=== PATIENT | female | born 1945 | race Caucasian/White ===

== ENCOUNTER 2019-09-26 08:03 | Emergency (ER) | payer BC, SELFPAY | END 2019-09-26 08:15 | disposition left against medical advice (07) | DX: Z53.21 Procedure and treatment not carried out due to patient leaving prior to being seen by health care provider (principal) | CPT/HCPCS: 99199 ==

== ENCOUNTER 2021-02-22 11:19 | Emergency (ER) | payer BC, SELFPAY ==
[2021-02-22 11:32] VITALS: BP 121/74; PULSE 102; RESP 20; TEMP 37.1; O2SAT 100
--- NOTE | 2021-02-22 11:55 | ED.NAVMDI ---
HPI - Nausea/Vomiting/Diarrhea General Chief complaint: Nausea/Vomiting/Diarrhea Stated complaint: Upset Stomach Time Seen by Provider: 02/22/21 11:55 Source: patient Mode of arrival: ambulatory Limitations: no limitations History of Present Illness HPI Narrative: Grazyna Rosas is a 75 yo female with high cholesterol, hypothyroid, HTN, depression, comes with diarrhea since Thursday. Has IBS. When has flare she is to liquid diet, will use Imodium when he has diarrhea Related Data Home Medications Medication Instructions Recorded Confirmed atorvastatin 10 mg PO DAILY 09/26/19 02/22/21 levothyroxine 100 mcg PO DAILY 09/26/19 02/22/21 lisinopril-hydrochlorothiazide 1 tablet PO DAILY 09/26/19 02/22/21 sertraline 50 mg PO DAILY 09/26/19 02/22/21 meloxicam 7.5 mg PO DAILY 02/22/21 02/22/21 potassium chloride 20 meq PO DAILY 02/22/21 02/22/21 Allergies Allergy/AdvReac Type Severity Reaction Status Date / Time codeine Allergy Mild ITCH Verified 02/22/21 11:30 Review of Systems Review of Systems: Narrative: CONSTITUTIONAL: Denies fever, chills, sweats. Appears dehydrated EYES: Denies visual changes, redness, discharge. ENT: Denies rhinorrhea, congestion, sore throat, otalgia. CARDIOVASCULAR: Denies chest pain, palpitations, edema. RESPIRATORY: Denies dyspnea, wheezing, cough GASTROINTESTINAL: Denies abdominal pain, nausea, vomiting, has bouts of watery diarrhea. GENITOURINARY: Denies dysuria, hematuria, abnormal discharge SKIN: Denies rash or itching. NEUROLOGIC: Denies numbness, or focal weakness. PSYCHIATRIC: Denies anxiety or depression. FOR[facility]LY [facility], [facility] Past Medical History Medical History High cholesterol HTN (hypertension) Hypothyroid IBS (irritable bowel syndrome) Family History Family History Other Hypertension Social History Social History (Updated 02/22/21 @ 11:59 by Alejandra Chaudhary CNP) Smoking status: Never smoker Alcohol intake: never Gender identity (if verbalized by the patient): Female Comments At time of signature, I agree with nursing past medical, surgical, social and family history. There is no relevant family history pertinent to the presenting complaint. Exam Narrative: Exam Narrative: GENERAL: This is a well-nourished, well-developed patient, in mild distress. HEAD: normocephalic, atraumatic. EYES: Sclera clear/white. Vision is grossly intact. EARS: External ears normal. Hearing grossly intact. NOSE: External nose normal without nasal discharge, nares without redness, no rhinorrhea. THROAT: Mucous membranes moist, NECK: Neck supple, CARDIOVASCULAR: Tachycradic rate and rhythm without murmurs, gallops, or rubs. RESPIRATORY: Clear to auscultation. Breath sounds equal bilaterally. No wheezes, rales, or rhonchi. GASTROINTESTINAL: Abdomen soft, mild tender, hyperactive bowel sounds SKIN: warm, intact with no suspicious lesions or rash, good texture and turgor. NEURO: awake, alert, and oriented to person, place and time. There were no obvious focal neurologic abnormalities. Steady gait EXTREMITIES: Normal range of motion. BACK: Nontender without deformity Course Course Emergency Course: Patient comes here for IBS flareup; states try to call her primary care doctor and she is not in the office today; refuses to go to the ER for IV fluids Discussed brat diet and the use of Imodium 4 mg every 4 hours until diarrhea starts to light up normal and start to eat things in the brat diet and push fluids She becomes tachycardic are dizzy she needs to go to the emergency room; if modification of diet and use of Imodium does not stop the diarrhea she needs also go to the emergency room for further evaluation, electrolyte replacement Vital Signs Vital signs: Vital Signs Temperature 98.7 F 02/22/21 11:32 Pulse Rate 102 H 02/22/21 11:32 Respiratory Rate 20 02/22/21 11:32 Blood Pressure
== END 2021-02-22 12:18 | disposition home or self-care (01) ==
PROVIDERS: Emergency Provider Nurse Practitioner; PCP Internal Medicine
DX: K52.9 Noninfective gastroenteritis and colitis, unspecified (principal); E86.0 Dehydration; E78.00 Pure hypercholesterolemia, unspecified; I10 Essential (primary) hypertension; E03.9 Hypothyroidism, unspecified
CPT/HCPCS: 99211; G0463